=== PATIENT | male | born 1965 | race Caucasian/White ===

== ENCOUNTER 2019-01-28 09:08 | Day surgery (SDC) | payer OTHER ==
[~2019-01-28] VITALS: Ht 167.6 cm; Wt 68.5 kg
[~2019-01-28 09:08] MED LIST: ASCO500 PO; CEPH500 PO; HYDACE5 PO; IBUP600 PO; Lysine1000 MG PO; SULTRIDS PO; Vitamin B-1250 MCG PO
== END 2019-01-28 11:15 | disposition home or self-care (01) ==
LOC: ORSCSDS 09:08
PROVIDERS: Surgery
PROC: 0DBM8ZX Excision of Descending Colon, Via Natural or Artificial Opening Endoscopic, Diagnostic (ICD-10-PCS; principal; 2019-01-28 10:30)
DX: Z12.11 Encounter for screening for malignant neoplasm of colon (principal); D12.4 Benign neoplasm of descending colon
CPT/HCPCS: 88305; J2704; J7120

== ENCOUNTER 2024-08-25 08:15 | Day surgery (SDC) | payer OTHER ==
[~2024-08-25] VITALS: Ht 167.6 cm; Wt 70.3 kg
[~2024-08-25 08:15] MED LIST changes: +Lactated Ringer's 1,000 ML IV ONE; +propofoL 50 ML IV ONE
[2024-08-25] MEDS ORDERED: Vitamin D1000 UNI1 (08:58)
[2024-08-25] MEDS ORDERED: B-12500 MC2 (08:58)
[2024-08-25] MEDS ORDERED: ZINC220 (08:59)
[2024-08-25] MEDS ORDERED: Lactated Ringer's 1,000 ML IV ONE (09:34)
[2024-08-25] MEDS ORDERED: Ondansetron HCl 2 MG / ML 2ML Vial ONE (10:06)
[2024-08-25 10:41] VITALS: BP 117/70
== END 2024-08-25 10:35 | disposition home or self-care (01) ==
LOC: ORSCSDS 08:15
PROVIDERS: Surgery
PROC: 0DBH8ZX Excision of Cecum, Via Natural or Artificial Opening Endoscopic, Diagnostic (ICD-10-PCS; principal; 2024-08-25 09:45)
DX: Z12.11 Encounter for screening for malignant neoplasm of colon (principal); D12.0 Benign neoplasm of cecum; Z86.0100 Personal history of colon polyps, unspecified; E78.5 Hyperlipidemia, unspecified
CPT/HCPCS: 88305; J2405; J2704; J7120